=== PATIENT | male | born 1975 | race Caucasian/White ===

== ENCOUNTER 2016-07-04 19:31 | Emergency (ER) | payer OTHER ==
[2016-07-04] MEDS ORDERED: CLEOCIN 150 MG CAPSULE PO ONE ×2 (21:01)
[2016-07-04] MEDS ORDERED: CLEOCIN 150 MG CAPSULE ONE (21:05)
--- NOTE | 2016-07-04 21:07 | ERPHSYRPT ---
- History of Present Illness Time Seen by Provider: 07/04/16 20:55 Source: patient Exam Limitations: no limitations Patient Subjective Stated Complaint: pt states he thinks he might have been bit by a spider Triage Nursing Assessment: pt alert and oriented, answers questions approp. pt ambulatory with steady gait noted. respirations nonlabored with lungs cta. scab and redness to upper rt abd, no drainage noted. Physician History: FOR THE PAST 3 DAYS PT HAS HAD AN ERYTHEMATOUS TENDER AREA ON HIS RIGHT UPPER ABDOMEN PRESUMABLY FROM A SPIDER BITE. PT STATES HE SQUEEZED PUS OUT OF IT ABOUT1 HOUR AGO. PT DENIES FEVER, CHEST PAIN, NAUSEA, VOMITING; ADMITS TO RASH ON FEET. Allergies/Adverse Reactions: fluoxetine [From Prozac] Adverse Reaction (Verified 07/04/16 20:42) Home Medications: No Home Meds 1 ea MC UD 07/04/16 [History] Hx Tetanus, Diphtheria Vaccination/Date Given: Yes Hx Influenza Vaccination/Date Given: No Hx Pneumococcal Vaccination/Date Given: No Immunizations Up to Date: Yes - Review of Systems Skin: Rash (FEET), Other (SKIN LESION ON ABDOMEN.) All Other Systems: Reviewed and Negative - Past Surgical History Past Surgical History: Yes Gastrointestinal: Appendectomy Musculoskeletal: Orthopedic Surgery - Social History Smoking Status: Current every day smoker How long have you smoked: 26 yrs Exposure to second hand smoke: No Drug Use: none Patient Lives Alone: No - Nursing Vital Signs Nursing Vital Signs: Initial Vital Signs Temperature 97.8 F Temperature Source Oral Pulse Rate 81 Respiratory Rate 18 Blood Pressure [Right Arm] 125/66 Pain Intensity 6 - Physical Exam General Appearance: alert Eye Exam: PERRL/EOMI Ears, Nose, Throat Exam: pharynx normal, moist mucous membranes Neck Exam: normal inspection Respiratory Exam: lungs clear Cardiovascular Exam: normal heart sounds Gastrointestinal/Abdomen Exam: soft, normal bowel sounds, tenderness (MILD TENDERNESS OVER A ~ 2 CM X 1 CM ERYTHEMATOUS NODULE NON-FLUCTUANT WITHOUT DRAINAGE.) Back Exam: normal range of motion Extremity Exam: other (FLESHY COLORED FLAKY RASH ON PLANTAR ASPECT OF BOTH FEET. ) Neurologic Exam: alert, cooperative SpO2 Interpretation: normal SpO2: 96 Oxygen Delivery: Room Air - Course Nursing assessment & vital signs reviewed: Yes Ordered Tests: Medication Summary Discontinued Medications Generic Name Dose Route Start Last Admin Trade Name Freq PRN Reason Stop Dose Admin Clindamycin HCl 300 mg 07/04/16 21:01 Cleocin 150 Mg Capsule PO 07/04/16 21:02 STAT ONE - Departure Time of Disposition: 21:10 Departure Disposition: Home Clinical Impression: CELLULITIS OF ABDOMEN, BILATERAL TINEA PEDIS Condition: Fair Critical Care Time: No Instructions: Cellulitis -- Adult Additional Instructions: FOLLOW UP WITH PRIVATE DOCTOR TOMORROW. Prescriptions: Clindamycin HCl 300 mg PO Q6H #40 capsule Clotrimazole/Betamet Diprop [Lotrisone Cream] 45 gm TP BID #1 tube
[2016-07-04 21:16] VITALS: BP 131/72; PULSE 70; O2SAT 100
== END 2016-07-04 21:16 | disposition home or self-care (01) ==
LOC: ED 19:31
DX: L03.311 Cellulitis of abdominal wall (principal); B35.3 Tinea pedis
CPT/HCPCS: 99283; 99284; A9270-GY

== ENCOUNTER 2019-07-24 11:55 | Inpatient (IN) | payer OTHER, SELFPAY ==
[2019-07-24] MEDS ORDERED: Sodium Chloride 0.9% 1000 ML 1,000 ML IV STA ×2 (11:58→13:55)
--- NOTE | 2019-07-24 12:33 | XRAY ---
Indication: Altered mental status. Shallow breathing. Unresponsive. Comparison: None Portable chest underinflated accentuating cardiopulmonary structures. Right base subsegmental atelectasis/scarring and small left base calcified granuloma. Heart is borderline enlarged. Bony thorax intact. Impression: Nonacute underinflated chest.
--- NOTE | 2019-07-24 12:37 | XRAY ---
Indication: Altered mental status. Unresponsive. Multiple contiguous axial images obtained through the head without contrast. Comparison: None Normal appearing brain parenchyma, ventricles, and bony calvarium. Visualized paranasal sinuses and mastoid air cells are clear. Impression: Normal CT head without contrast exam.
[2019-07-24 12:48] LABS: Absolute Neutrophil Ct (ANC) 13.28 (1.4-6.9); BASOPHIL % 0.1 % (0.0-0.4); Basophil (Absolute #) 0.02 (0-0.4); Eosinophil (Absolute #) 0 (0-0.5); Hematocrit 51.4 % (42-50); Hemoglobin 17.5 gm/dl (12.5-18.0); Lymphocyte (Absolute #) 0.89 (1.0-4.6); Lymphocytes % 5.8 % (24.0-44.0); Mean Cell Volume 88.9 fl (78-100); Mean Corpuscular Hemoglobin 30.3 pg (26-32); Mean Platelet Volume 9.5 fl (7.5-11.0); Monocyte (Absolute #) 1.06 (0.0-1.3); Neutrophil % 87.1 % (36.0-66.0); Platelet Count 203 K/mm3 (150-450); Red Blood Count 5.78 M/mm3 (4.1-5.6); Red Cell Distribution Width 13.7 % (11.5-14.0); White Blood Count 15.3 K/mm3 (4.0-10.5)
[2019-07-24 12:53] LABS: INR 1.1 (0.8-3.0); PROTIME 12.5 SECONDS (8.83-12.87)
[2019-07-24 13:03] LABS: ALBUMIN 4.2 g/dL (3.5-5.0); ALKALINE PHOSPHATASE 88 U/L (38-126); ANION GAP 18.5 MEQ/L (5-15); BLOOD UREA NITROGEN 17 mg/dL (9-20); CHLORIDE 104 mmol/L (98-107); Calcium 9.2 mg/dL (8.4-10.2); Carbon Dioxide 21 mmol/L (22-30); Creatinine 1 1.01 mg/dL (0.66-1.25); Glucose 144 mg/dL (74-106); Potassium 3.9 mmol/L (3.5-5.1); SGOT/AST 330 U/L (17-59); SGPT/ALT 71 U/L (0-50); SODIUM 140 mmol/L (137-145); Total Protein 7.6 g/dL (6.3-8.2)
[2019-07-24 13:05] LABS: ACETAMINOPHEN < 10 ug/ml (10-30); ETHYL ALCOHOL < 10 mg/dL (0-10); SALICYLATE < 1.0 mg/dL (2-20)
[2019-07-24 13:15] LABS: TROPONIN < 0.012 ng/mL (0.000-0.034)
[2019-07-24] MEDS ORDERED: Ativan 2 MG/1 ML VIAL IV ONE (13:17)
[2019-07-24] MEDS ORDERED: Ativan 2 MG/1 ML VIAL ONE (13:18)
[2019-07-24] MEDS ORDERED: Sodium Chloride 0.9% 1000 ML 1,000 ML ONE ×3 (13:23→14:21)
[2019-07-24 13:30] LABS: Amphetamine,Urine POSITIVE (NEGATIVE); Barbiturate,Urine NEGATIVE (NEGATIVE); Benzodiazepine,Urine NEGATIVE (NEGATIVE); Cocaine,Urine NEGATIVE (NEGATIVE); Methadone,Urine NEGATIVE (NEGATIVE); Opiate,Urine NEGATIVE (NEGATIVE); PCP,Urine NEGATIVE (NEGATIVE); THC,Urine NEGATIVE (NEGATIVE)
[2019-07-24 13:34] LABS: Appearance CLOUDY (CLEAR); Bilirubin NEGATIVE (NEGATIVE); Blood LARGE Ery/ul (0-5); Epithelial Cells RARE /HPF (FEW); Glucose 50 mg/dL (NEGATIVE); Ketones NEGATIVE (NEGATIVE); Leukocyte Esterase NEGATIVE (NEGATIVE); Mucus MANY /HPF (NEGATIVE); Nitrite NEGATIVE (NEGATIVE); Non-Squamous Epithelial Cells RARE /HPF (FEW); Protein,Urine Dip 100 (Negative); Specific Gravity 1.025 (1.005-1.025); Urobilinogen NEGATIVE mg/dL (0-1)
[2019-07-24 13:38] LABS: CK-Creatinine Phosphokinase 25472 U/L (55-170)
[2019-07-24] MEDS ORDERED: ROCEPHIN 1 Gm-D5w 50 ml Bag** 1 G/50 ML IVPB IV STA (13:39)
--- NOTE | 2019-07-24 14:06 | ERPHSYRPT ---
- History of Present Illness Time Seen by Provider: 07/24/19 12:00 Source: EMS Exam Limitations: clinical condition Patient Subjective Stated Complaint: EMS states "We were called to not acting right, upon arrival, he was combative, we gave him 1 mg narcan and 5 mg versed due to being combative." Triage Nursing Assessment: Pt presented laying supine, painfully responsive. Pt sedated, respiration deep, irregulaar. Pt skin pwd. Physician History: [id number] white male male assessed today because he was not acting right. He was quite combative with an estimated give him 1 mg Versed arrival in the ER he is unable to give a history because of the Versed. Timing/Duration: today Severity: severe Allergies/Adverse Reactions: fluoxetine [From Prozac] Adverse Reaction (Verified 07/04/16 20:42) Home Medications: No Home Meds [No Home Meds] 1 ea MC UD 07/04/16 [History] Hx Tetanus, Diphtheria Vaccination/Date Given: (unknown) Hx Influenza Vaccination/Date Given: (unknown) Hx Pneumococcal Vaccination/Date Given: (unknown) Immunizations Up to Date: (unknown) Travel Risk - International Travel If Yes where:: [place] - Coronavirus Screening Has patient experienced Coronavirus symptoms: No - Review of Systems Constitutional: Fever, Chills All Other Systems: Reviewed and Negative, Unable due to condition - Past Medical History Pertinent Past Medical History: Yes GI Medical History: GERD Other Medical History: bipolar. skin infection - Past Surgical History Past Surgical History: Yes Gastrointestinal: Appendectomy Musculoskeletal: Orthopedic Surgery - Social History Smoking Status: Unknown if ever smoked How long have you smoked: 26 yrs Exposure to second hand smoke: (unknown) Drug Use: none Patient Lives Alone: (unknown) - Nursing Vital Signs Nursing Vital Signs: Initial Vital Signs Pulse Rate 108 H 07/24/19 11:56 Respiratory Rate 14 07/24/19 11:56 Blood Pressure 136/94 07/24/19 11:56 O2 Sat by Pulse Oximetry 94 L 07/24/19 11:56 Pain Scale Pain Intensity 0 - Physical Exam General Appearance: severe distress Eye Exam: PERRL/EOMI Ears, Nose, Throat Exam: normal ENT inspection Neck Exam: normal inspection, full range of motion Respiratory Exam: normal breath sounds, lungs clear Cardiovascular Exam: normal heart sounds, tachycardia Gastrointestinal/Abdomen Exam: soft, normal bowel sounds Male Genitalia Exam: normal genitalia Rectal Exam: deferred Back Exam: normal inspection Extremity Exam: normal inspection Neurologic Exam: agitation, uncooperative, intoxicated appearance Skin Exam: normal color, diaphoresis Lymphatic Exam: No adenopathy SpO2 Interpretation: normal SpO2: 97 O2 Delivery: Room Air Ordered Tests: Active Orders 24 hr Category Date Time Status Content Coordinator STAT Care 07/24/19 11:59 Active Cath for Specimen-Straight STAT Care 07/24/19 11:59 Active EKG-ER Only STAT Care 07/24/19 11:58 Active IV Insertion STAT Care 07/24/19 11:58 Active Oxygen-ED Only Nasal Cannula 2 lpm Care 07/24/19 11:58 Active CHEST 1 VIEW (PORTABLE) Stat Exams 07/24/19 11:59 Completed HEAD WITHOUT CONTRAST [CT] Stat Exams 07/24/19 11:59 Completed ACETAMINOPHEN Stat Lab 07/24/19 12:20 Completed CBC W DIFF Stat Lab 07/24/19 12:20 Completed CK-Creatinine Phosphokinase Routine Lab 07/24/19 12:20 Completed CMP Stat Lab 07/24/19 12:20 Completed CULTURE,URINE Stat Lab 07/24/19 12:43 Received ETHYL ALCOHOL Stat Lab 07/24/19 12:20 Completed Lactic Acid Stat Lab 07/24/19 11:58 Completed PROTIME WITH INR Stat Lab 07/24/19 12:20 Completed SALICYLATE Stat Lab 07/24/19 12:20 Completed TROPONIN Q3H Lab 07/24/19 12:20 Completed TROPONIN Q3H Lab 07/24/19 15:15 Ordered TROPONIN Q3H Lab 07/24/19 18:15 Ordered TROPONIN Q3H Lab 07/24/19 21:15 Ordered UA W/RFX UR CULTURE Stat Lab 07/24/19 12:43 Completed Urine Triage Profile Stat Lab 07/24/19 12:43 Completed Medication Summary Generic Name Dose Route Start Last Admin Trade Name Freq PRN Reason Stop Dose Admin Sodium Chloride 1,000 mls @ 999 mls/hr 07/24/19 13:55 Sodium Chloride 0.9% 1000 Ml IV 07/24/19 14:55 .Q1H1M STA Discontinued Medications Generic Name Dose Route Start Last Admin Trade Name Freq PRN Reason Stop Dose Admin Sodium Chloride 1,000 mls @ 999 mls/hr 07/24/19 11:58 07/24/19 13:25 Sodium Chloride 0.9% 1000 Ml IV 07/24/19 12:58 999 mls/hr .Q1H1M STA Administration Sodium Chloride Confirm 07/24/19 13:23 Sodium Chloride 0.9% 1000 Ml Administered 07/24/19 13:24 Dose 1,000 mls @ ud .ROUTE .STK-MED ONE Ceftriaxone Sodium/Dextrose 1 g in 50 mls @ 100 mls/hr 07/24/19 13:39 Rocephin 1 Gm-D5w 50 Ml Bag IV 07/24/19 14:08 STAT STA Sodium Chloride Confirm 07/24/19 13:47 Sodium Chloride 0.9% 1000 Ml Administered 07/24/19 13:48 Dose 1,000 mls @ ud .ROUTE .STK-MED ONE Lorazepam 2 mg 07/24/19 13:17 07/24/19 13:22 Ativan 2 Mg/1 Ml Vial IV 07/24/19 13:18 2 mg STAT ONE Administration Lorazepam Confirm 07/24/19 13:18 Ativan 2 Mg/1 Ml Vial Administered 07/24/19 13:19 Dose 2 mg .ROUTE .STK-MED ONE Lab/Rad Data: Laboratory Result Diagrams 07/24/19 12:20 07/24/19 12:20 Laboratory Results 07/24/19 07/24/19 07/24/19 Range/Units 12:43 12:43 12:20 WBC (4.0-10.5) K/mm3 RBC (4.1-5.6) M/mm3 Hgb (12.5-18.0) gm/dl Hct (42-50) % MCV (78-100) fl MCH (26-32) pg MCHC (32-36) g/dl RDW (11.5-14.0) % Plt Count (150-450) K/mm3 MPV (7.5-11.0) fl Gran % (36.0-66.0) % Eos # (Auto) (0-0.5) Absolute Lymphs (auto) (1.0-4.6) Absolute Monos (auto) (0.0-1.3) Lymphocytes % (24.0-44.0) % Monocytes % (0.0-12.0) % Eosinophils % (0.00-5.0) % Basophils % (0.0-0.4) % Absolute Granulocytes (1.4-6.9) Basophils # (0-0.4) PT (8.83-12.87) SECONDS INR (0.8-3.0) Sodium (137-145) mmol/L Potassium (3.5-5.1) mmol/L Chloride (98-107) mmol/L Carbon Dioxide (22-30) mmol/L Anion Gap (5-15) MEQ/L BUN (9-20) mg/dL Creatinine (0.66-1.25) mg/dL Estimated GFR ML/MIN Glucose (74-106) mg/dL Lactic Acid (0.4-2.0) Calcium (8.4-10.2) mg/dL Total Bilirubin (0.2-1.3) mg/dL AST (17-59) U/L ALT (0-50) U/L Alkaline Phosphatase (38-126) U/L Creatine Kinase 85608 H (55-170) U/L Troponin I < 0.012 (0.000-0.034) ng/mL Serum Total Protein (6.3-8.2) g/dL Albumin (3.5-5.0) g/dL Urine Color JANIE (YELLOW) Urine Appearance CLOUDY (CLEAR) Urine pH 5.0 (5-6) Ur Specific [place] 1.025 (1.005-1.025) Urine Protein 100 (Negative) Urine Ketones NEGATIVE (NEGATIVE) Urine Blood LARGE (0-5) Maxime/ul Urine Nitrite NEGATIVE (NEGATIVE) Urine Bilirubin NEGATIVE (NEGATIVE) Urine Urobilinogen NEGATIVE (0-1) mg/dL Ur Leukocyte Esterase NEGATIVE (NEGATIVE) Urine WBC (Auto) 16-25 (0-5) /HPF Urine RBC (Auto) NONE (0-2) /HPF U Hyaline Cast (Auto) 11-25 (0-2) /LPF U Epithel Cells (Auto) RARE (FEW) /HPF Urine Bacteria (Auto) NONE (NEGATIVE) /HPF U Non-Squamous Epi Cells RARE (FEW) /HPF Urine Mucus (Auto) MANY (NEGATIVE) /HPF Urine Culture Reflexed ORDERED SEPARATELY (NO) Urine Glucose 50 (NEGATIVE) mg/dL Salicylates (2-20) mg/dL Urine Opiates Level NEGATIVE (NEGATIVE) Ur Methadone NEGATIVE (NEGATIVE) Acetaminophen (10-30) ug/ml Urine Barbiturates NEGATIVE (NEGATIVE) Ur Phencyclidine (PCP) NEGATIVE (NEGATIVE) Urine Amphetamine POSITIVE (NEGATIVE) U Benzodiazepine Level NEGATIVE (NEGATIVE) Urine Cocaine NEGATIVE (NEGATIVE) Urine Marijuana (THC) NEGATIVE (NEGATIVE) Ethyl Alcohol (0-10) mg/dL 07/24/19 07/24/19 07/24/19 Range/Units 12:20 12:20 12:20 WBC 15.3 H (4.0-10.5) K/mm3 RBC 5.78 H (4.1-5.6) M/mm3 Hgb 17.5 (12.5-18.0) gm/dl Hct 51.4 H (42-50) % MCV 88.9 (78-100) fl MCH 30.3 (26-32) pg MCHC 34.0 (32-36) g/dl RDW 13.7 (11.5-14.0) % Plt Count 203 (150-450) K/mm3 MPV 9.5 (7.5-11.0) fl Gran % 87.1 H (36.0-66.0) % Eos # (Auto) 0 (0-0.5) Absolute Lymphs (auto) 0.89 L (1.0-4.6) Absolute Monos (auto) 1.06 (0.0-1.3) Lymphocytes % 5.8 L (24.0-44.0) % Monocytes % 7.0 (0.0-12.0) % Eosinophils % 0.0 (0.00-5.0) % Basophils % 0.1 (0.0-0.4) % Absolute Granulocytes 13.28 H (1.4-6.9) Basophils # 0.02 (0-0.4) PT 12.5 (8.83-12.87) SECONDS INR 1.10 (0.8-3.0) Sodium 140 (137-145) mmol/L Potassium 3.9 (3.5-5.1) mmol/L Chloride 104 (98-107) mmol/L Carbon Dioxide 21 L (22-30) mmol/L Anion Gap 18.5 H (5-15) MEQ/L BUN 17 (9-20) mg/dL Creatinine 1.01 (0.66-1.25) mg/dL Estimated GFR > 60.0 ML/MIN Glucose 144 H (74-106) mg/dL Lactic Acid (0.4-2.0) Calcium 9.2 (8.4-10.2) mg/dL Total Bilirubin 0.90 (0.2-1.3) mg/dL AST 330 H (17-59) U/L ALT 71 H (0-50) U/L Alkaline Phosphatase 88 (38-126) U/L Creatine Kinase (55-170) U/L Troponin I (0.000-0.034) ng/mL Serum Total Protein 7.6 (6.3-8.2) g/dL Albumin 4.2 (3.5-5.0) g/dL Urine Color (YELLOW) Urine Appearance (CLEAR) Urine pH (5-6) Ur Specific [place] (1.005-1.025) Urine Protein (Negative) Urine Ketones (NEGATIVE) Urine Blood (0-5) Maxime/ul Urine Nitrite (NEGATIVE) Urine Bilirubin (NEGATIVE) Urine Urobilinogen (0-1) mg/dL Ur Leukocyte Esterase (NEGATIVE) Urine WBC (Auto) (0-5) /HPF Urine RBC (Auto) (0-2) /HPF U Hyaline Cast (Auto) (0-2) /LPF U Epithel Cells (Auto) (FEW) /HPF Urine Bacteria (Auto) (NEGATIVE) /HPF U Non-Squamous Epi Cells (FEW) /HPF Urine Mucus (Auto) (NEGATIVE) /HPF Urine Culture Reflexed (NO) Urine Glucose (NEGATIVE) mg/dL Salicylates < 1.0 L (2-20) mg/dL Urine Opiates Level (NEGATIVE) Ur Methadone (NEGATIVE) Acetaminophen < 10 L (10-30) ug/ml Urine Barbiturates (NEGATIVE) Ur Phencyclidine (PCP) (NEGATIVE) Urine Amphetamine (NEGATIVE) U Benzodiazepine Level (NEGATIVE) Urine Cocaine (NEGATIVE) Urine Marijuana (THC) (NEGATIVE) Ethyl Alcohol < 10 (0-10) mg/dL 07/24/19 Range/Units 11:58 WBC (4.0-10.5) K/mm3 RBC (4.1-5.6) M/mm3 Hgb (12.5-18.0) gm/dl Hct (42-50) % MCV (78-100) fl MCH (26-32) pg MCHC (32-36) g/dl RDW (11.5-14.0) % Plt Count (150-450) K/mm3 MPV (7.5-11.0) fl Gran % (36.0-66.0) % Eos # (Auto) (0-0.5) Absolute Lymphs (auto) (1.0-4.6) Absolute Monos (auto) (0.0-1.3) Lymphocytes % (24.0-44.0) % Monocytes % (0.0-12.0) % Eosinophils % (0.00-5.0) % Basophils % (0.0-0.4) % Absolute Granulocytes (1.4-6.9) Basophils # (0-0.4) PT (8.83-12.87) SECONDS INR (0.8-3.0) Sodium (137-145) mmol/L Potassium (3.5-5.1) mmol/L Chloride (98-107) mmol/L Carbon Dioxide (22-30) mmol/L Anion Gap (5-15) MEQ/L BUN (9-20) mg/dL Creatinine (0.66-1.25) mg/dL Estimated GFR ML/MIN Glucose (74-106) mg/dL Lactic Acid 3.7 H (0.4-2.0) Calcium (8.4-10.2) mg/dL Total Bilirubin (0.2-1.3) mg/dL AST (17-59) U/L ALT (0-50) U/L Alkaline Phosphatase (38-126) U/L Creatine Kinase (55-170) U/L Troponin I (0.000-0.034) ng/mL Serum Total Protein (6.3-8.2) g/dL Albumin (3.5-5.0) g/dL Urine Color (YELLOW) Urine Appearance (CLEAR) Urine pH (5-6) Ur Specific [place] (1.005-1.025) Urine Protein (Negative) Urine Ketones (NEGATIVE) Urine Blood (0-5) Maxime/ul Urine Nitrite (NEGATIVE) Urine Bilirubin (NEGATIVE) Urine Urobilinogen (0-1) mg/dL Ur Leukocyte Esterase (NEGATIVE) Urine WBC (Auto) (0-5) /HPF Urine RBC (Auto) (0-2) /HPF U Hyaline Cast (Auto) (0-2) /LPF U Epithel Cells (Auto) (FEW) /HPF Urine Bacteria (Auto) (NEGATIVE) /HPF U Non-Squamous Epi Cells (FEW) /HPF Urine Mucus (Auto) (NEGATIVE) /HPF Urine Culture Reflexed (NO) Urine Glucose (NEGATIVE) mg/dL Salicylates (2-20) mg/dL Urine Opiates Level (NEGATIVE) Ur Methadone (NEGATIVE) Acetaminophen (10-30) ug/ml Urine Barbiturates (NEGATIVE) Ur Phencyclidine (PCP) (NEGATIVE) Urine Amphetamine (NEGATIVE) U Benzodiazepine Level (NEGATIVE) Urine Cocaine (NEGATIVE) Urine Marijuana (THC) (NEGATIVE) Ethyl Alcohol (0-10) mg/dL - Progress Progress: unchanged Discussed with : Kelly Will see patient in: hospital (full admit) - Departure Departure Disposition: In-patient Admission Clinical Impression: Rhabdomyolysis Condition: Stable Critical Care Time: Yes Critical Care Time(excluding separately billable procedures): Critical 75-104 mins Referrals: JULIANNA HICKS [Primary Care Provider] -
[2019-07-24] MEDS ORDERED: Sodium Chloride 0.9% 1000 ML 1,000 ML IV SCH (14:15)
[2019-07-24] MEDS ORDERED: Haldol 5 MG IV ONE (14:28)
[2019-07-24] MEDS ORDERED: Haldol 5 MG ONE (14:30)
[2019-07-24] MEDS ORDERED: APRESOLINE 20 MG/ML INJ IV PRN (17:20)
[2019-07-24] MEDS: BENADRYL 50 MG/ML IV PRN ×2 (17:43→21:42)
[2019-07-24] MEDS: Ativan 2 MG/1 ML VIAL IVIM PRN (17:44)
[2019-07-24] MEDS: Haldol 5 MG IVIM PRN ×2 (17:45→21:42)
[2019-07-25] MEDS: Haldol 5 MG IVIM PRN ×4 (02:01→17:16)
[2019-07-25] MEDS: Ativan 2 MG/1 ML VIAL IVIM PRN ×4 (02:01→16:57)
[2019-07-25] MEDS: BENADRYL 50 MG/ML IV PRN ×4 (02:01→17:16)
[2019-07-25] MEDS: FEVERALL 650 MG PR PRN ×2 (04:41→08:10)
[2019-07-25 05:05] LABS: Hematocrit 47.4 % (42-50); Hemoglobin 16.3 gm/dl (12.5-18.0); Mean Cell Volume 89.9 fl (78-100); Mean Corpuscular Hemoglobin 30.9 pg (26-32); Mean Corpuscular Hgb Concent. 34.4 g/dl (32-36); Mean Platelet Volume 9.3 fl (7.5-11.0); Platelet Count 175 K/mm3 (150-450); Red Blood Count 5.27 M/mm3 (4.1-5.6); Red Cell Distribution Width 13.9 % (11.5-14.0); White Blood Count 12.8 K/mm3 (4.0-10.5)
[2019-07-25 05:34] LABS: ALBUMIN 3.7 g/dL (3.5-5.0); ALKALINE PHOSPHATASE 69 U/L (38-126); BLOOD UREA NITROGEN 14 mg/dL (9-20); CHLORIDE 109 mmol/L (98-107); Calcium 8.6 mg/dL (8.4-10.2); Carbon Dioxide 23 mmol/L (22-30); Creatinine 1 0.87 mg/dL (0.66-1.25); Glucose 113 mg/dL (74-106); Potassium 4.2 mmol/L (3.5-5.1); SGOT/AST 477 U/L (17-59); SGPT/ALT 81 U/L (0-50); SODIUM 142 mmol/L (137-145); Total Protein 6.8 g/dL (6.3-8.2)
[2019-07-25 08:36] LABS: A-aADO2 52; ABG HEMOGLOBIN 16.3; ABG POTASSIUM 4.3 (3.5-5.1); ABG SITE RIGHT BRACHIAL; ARTERIAL BLD GAS O2 SATURATION 93.5 % (95-100); ARTERIAL BLOOD GAS BASE EXCESS -1.5 (-2.0-2.0); ARTERIAL BLOOD GAS FIO2 21 %; ARTERIAL BLOOD GAS PCO2 30 mmHg (35-45); ARTERIAL BLOOD GAS PO2 60 mmHg (75-100); ARTERIAL BLOOD GAS pH 7.46 (7.35-7.45); CARBOXYHEMOGLOBIN 2.5 % THgb (0.0-6.9); HCO3- 21.3 (22-28); HGB O2 SAT 90.2 g/dF (94-100); paO2 pAO1 0.54
[2019-07-25] MEDS ORDERED: Protonix 40MG Tablet PO SCH (10:00)
[2019-07-25] MEDS ORDERED: PATIENT OWN MEDICATION PO SCH (10:00)
[2019-07-25] MEDS ORDERED: ROCEPHIN 1 Gm-D5w 50 ml Bag** 1 G/50 ML IVPB IV SCH (10:00)
[2019-07-25] MEDS ORDERED: Pepcid 20 MG PO SCH (10:00)
[2019-07-25] MEDS ORDERED: Sodium Chloride 0.9% 1000 ML 1,000 ML IV STA (10:19)
[2019-07-25] MEDS ORDERED: Lactated Ringers 1,000 ML IV SCH (10:30)
[2019-07-25] MEDS ORDERED: PROTONIX 40 MG IV IV SCH (11:30)
[2019-07-25] MEDS ORDERED: Pepcid 20 MG VIAL IV SCH (12:00)
[2019-07-25] MEDS ORDERED: Geodon 20 MG INJ IM ONE ×2 (12:25→13:47)
[2019-07-25] MEDS ORDERED: Sodium Chloride 0.9% 1000 ML 1,000 ML IV SCH ×2 (13:15→19:50)
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
[2019-07-25 16:01] LABS: Hematocrit 44.7 % (42-50); Mean Corpuscular Hemoglobin 30.9 pg (26-32); Mean Corpuscular Hgb Concent. 33.6 g/dl (32-36); Mean Platelet Volume 9.5 fl (7.5-11.0); Platelet Count 149 K/mm3 (150-450); Red Blood Count 4.86 M/mm3 (4.1-5.6)
[2019-07-25 16:07] LABS: ALBUMIN 3.4 g/dL (3.5-5.0); ALKALINE PHOSPHATASE 62 U/L (38-126); ANION GAP 12.2 MEQ/L (5-15); BLOOD UREA NITROGEN 15 mg/dL (9-20); CHLORIDE 110 mmol/L (98-107); Calcium 8.4 mg/dL (8.4-10.2); Carbon Dioxide 24 mmol/L (22-30); Creatinine 1 0.77 mg/dL (0.66-1.25); Glucose 102 mg/dL (74-106); Potassium 4.3 mmol/L (3.5-5.1); SGOT/AST 312 U/L (17-59); SGPT/ALT 72 U/L (0-50); SODIUM 142 mmol/L (137-145); Total Protein 6.4 g/dL (6.3-8.2)
[2019-07-25 16:52] LABS: ATYPICAL LYMPHS 1 %; BAND 20 % (0.0-2.0); Dohle Bodies 2+; Lymphocytes 23 % (24-44); Monocyte 8 % (0.0-12.0); Neutrophils 48 % (36.-66.); Platelet Estimate NORMAL (NORMAL); Total Cells Counted 100
[2019-07-25] MEDS ORDERED: Ativan 2 MG/1 ML VIAL IV ONE (19:56)
--- NOTE | 2019-07-25 19:59 | XRAY ---
Indication: Cough and fever. Suspect COVID 19. Comparison: One day earlier. Portable chest unchanged again underinflated with right base subsegmental atelectasis/scarring and left base calcified granuloma. Heart remains borderline enlarged. No new cardiopulmonary abnormalities. Comment: Preliminary interpretation was made by [facility]. No critical discrepancy.
[2019-07-25] MEDS ORDERED: CLINDAMYCIN-D5W 600 MG/50 ML*** 600 MG/50 ML BAG IV SCH (20:00)
[2019-07-25] MEDS ORDERED: FEVERALL 120 MG RC ONE (20:03)
[2019-07-25] MEDS ORDERED: FEVERALL 650 MG PR ONE (20:03)
--- NOTE | 2019-07-25 20:46 | PCM.DS ---
Discharge Summary Date of Admission: 07/24/19 15:51 Date of Discharge: 07/25/19 Admitting Physician: NEEL DEL RIO Primary Care Provider: JULIANNA HICKS Allergies Allergies fluoxetine [From Prozac] Adverse Reaction (Verified 07/04/16 20:42) Hospital Summary - Hospital Course Hospital Course: Pt. was admitted to hospital for unrespsonsiveness, found to be in Rhabdomyolysis. Pt then spiked a temp of 102 in the am, transferred to covid unit, pt. became agitated given geodon and settled down, then later had a seizure, at that time it was felt the patient would benefit from a higher level of care. Pt. started on cleocin and transfer arrangements were made to [facility]. - Vitals & Intake/Output Vital Signs: Vital Signs Temperature 99.1 F 07/25/19 15:00 Pulse Rate 113 H 07/25/19 18:00 Respiratory Rate 17 07/25/19 19:00 Blood Pressure 123/58 07/25/19 15:00 O2 Sat by Pulse Oximetry 92 L 07/25/19 18:00 Intake & Output: Intake & Output 07/23/19 07/24/19 07/25/19 07/26/19 11:59 11:59 11:59 11:59 Intake Total 567 2700 Output Total 2450 900 Balance -1883 1800 Weight 104 kg 102.4 kg - Lab Result Diagrams: 07/25/19 15:05 07/25/19 15:05 Lab Results-Last 24 Hrs: Lab Results-Last 24 Hours 07/24/19 07/25/19 07/25/19 Range/Units 21:10 05:01 05:01 WBC 12.8 H (4.0-10.5) K/mm3 RBC 5.27 (4.1-5.6) M/mm3 Hgb 16.3 (12.5-18.0) gm/dl Hct 47.4 (42-50) % MCV 89.9 (78-100) fl MCH 30.9 (26-32) pg MCHC 34.4 (32-36) g/dl RDW 13.9 (11.5-14.0) % Plt Count 175 (150-450) K/mm3 MPV 9.3 (7.5-11.0) fl Segmented Neutrophils (36.-66.) % Band Neutrophils (0.0-2.0) % Lymphocytes (Manual) (24-44) % Monocytes (Manual) (0.0-12.0) % Atypical Lymphocytes % Dohle Bodies Platelet Estimate (NORMAL) RBC Morphology Puncture Site pCO2 (35-45) mmHg pO2 (75-100) mmHg Base Excess (-2.0-2.0) O2 Saturation (94-100) g/dF ABG pH (7.35-7.45) ABG HCO3 (22-28) ABG O2 Sat (Measured) (95-100) % Justin Test A-a Gradient a/A Ratio Hemoglobin Carboxyhemoglobin (0.0-6.9) % THgb Methemoglobin (1.4-1.5) % Temperature C POC O2 Flow Rate % Sodium (137-145) mmol/L Potassium (3.5-5.1) mmol/L Chloride (98-107) mmol/L Carbon Dioxide (22-30) mmol/L Anion Gap (5-15) MEQ/L BUN (9-20) mg/dL Creatinine (0.66-1.25) mg/dL Estimated GFR ML/MIN Glucose (74-106) mg/dL Calcium (8.4-10.2) mg/dL Total Bilirubin (0.2-1.3) mg/dL AST (17-59) U/L ALT (0-50) U/L Alkaline Phosphatase (38-126) U/L Creatine Kinase (55-170) U/L Troponin I < 0.012 (0.000-0.034) ng/mL Serum Total Protein (6.3-8.2) g/dL Albumin (3.5-5.0) g/dL Prealbumin 21.73 (17.6-36.0) mg/dL 07/25/19 07/25/19 07/25/19 Range/Units 05:01 08:25 11:05 WBC (4.0-10.5) K/mm3 RBC (4.1-5.6) M/mm3 Hgb (12.5-18.0) gm/dl Hct (42-50) % MCV (78-100) fl MCH (26-32) pg MCHC (32-36) g/dl RDW (11.5-14.0) % Plt Count (150-450) K/mm3 MPV (7.5-11.0) fl Segmented Neutrophils (36.-66.) % Band Neutrophils (0.0-2.0) % Lymphocytes (Manual) (24-44) % Monocytes (Manual) (0.0-12.0) % Atypical Lymphocytes % Dohle Bodies Platelet Estimate (NORMAL) RBC Morphology Puncture Site RIGHT BRACHIAL pCO2 30 L (35-45) mmHg pO2 60 L (75-100) mmHg Base Excess -1.5 (-2.0-2.0) O2 Saturation 90.2 L (94-100) g/dF ABG pH 7.46 H (7.35-7.45) ABG HCO3 21.3 L (22-28) ABG O2 Sat (Measured) 93.5 L (95-100) % Justin Test NOT APPLICABLE A-a Gradient 52 a/A Ratio 0.54 Hemoglobin 16.3 Carboxyhemoglobin 2.5 (0.0-6.9) % THgb Methemoglobin 1.0 L (1.4-1.5) % Temperature 37.0 C POC O2 Flow Rate 21 % Sodium 142 (137-145) mmol/L Potassium 4.2 4.3 (3.5-5.1) mmol/L Chloride 109 H (98-107) mmol/L Carbon Dioxide 23 (22-30) mmol/L Anion Gap 14.0 (5-15) MEQ/L BUN 14 (9-20) mg/dL Creatinine 0.87 (0.66-1.25) mg/dL Estimated GFR > 60.0 ML/MIN Glucose 113 H (74-106) mg/dL Calcium 8.6 (8.4-10.2) mg/dL Total Bilirubin 1.40 H (0.2-1.3) mg/dL AST 477 H (17-59) U/L ALT 81 H (0-50) U/L Alkaline Phosphatase 69 (38-126) U/L Creatine Kinase > 1600 H (55-170) U/L Troponin I (0.000-0.034) ng/mL Serum Total Protein 6.8 (6.3-8.2) g/dL Albumin 3.7 (3.5-5.0) g/dL Prealbumin (17.6-36.0) mg/dL 07/25/19 07/25/19 07/25/19 Range/Units 11:05 15:05 15:05 WBC 9.0 (4.0-10.5) K/mm3 RBC 4.86 (4.1-5.6) M/mm3 Hgb 15.0 (12.5-18.0) gm/dl Hct 44.7 (42-50) % MCV 92.0 (78-100) fl MCH 30.9 (26-32) pg MCHC 33.6 (32-36) g/dl RDW 14.0 (11.5-14.0) % Plt Count 149 L (150-450) K/mm3 MPV 9.5 (7.5-11.0) fl Segmented Neutrophils 48 (36.-66.) % Band Neutrophils 20 H (0.0-2.0) % Lymphocytes (Manual) 23 L (24-44) % Monocytes (Manual) 8 (0.0-12.0) % Atypical Lymphocytes 1 % Dohle Bodies 2+ Platelet Estimate NORMAL (NORMAL) RBC Morphology NORMAL Puncture Site pCO2 (35-45) mmHg pO2 (75-100) mmHg Base Excess (-2.0-2.0) O2 Saturation (94-100) g/dF ABG pH (7.35-7.45) ABG HCO3 (22-28) ABG O2 Sat (Measured) (95-100) % Justin Test A-a Gradient a/A Ratio Hemoglobin Carboxyhemoglobin (0.0-6.9) % THgb Methemoglobin (1.4-1.5) % Temperature C POC O2 Flow Rate % Sodium 142 (137-145) mmol/L Potassium 4.3 (3.5-5.1) mmol/L Chloride 110 H (98-107) mmol/L Carbon Dioxide 24 (22-30) mmol/L Anion Gap 12.2 (5-15) MEQ/L BUN 15 (9-20) mg/dL Creatinine 0.77 (0.66-1.25) mg/dL Estimated GFR > 60.0 ML/MIN Glucose 102 (74-106) mg/dL Calcium 8.4 (8.4-10.2) mg/dL Total Bilirubin 1.30 (0.2-1.3) mg/dL AST 312 H (17-59) U/L ALT 72 H (0-50) U/L Alkaline Phosphatase 62 (38-126) U/L Creatine Kinase (55-170) U/L Troponin I < 0.012 (0.000-0.034) ng/mL Serum Total Protein 6.4 (6.3-8.2) g/dL Albumin 3.4 L (3.5-5.0) g/dL Prealbumin (17.6-36.0) mg/dL Micro Results-Entire Visit: Microbiology 07/24/19 12:43 Urine Culture - Preliminary Catherized NO GROWTH TO DATE - Radiology Exams Ordered Rad Exams-Entire Visit: Radiology Procedures Category Date Time Status CHEST 1 VIEW (PORTABLE) Stat Exams 07/24/19 11:59 Completed CHEST 1 VIEW (PORTABLE) Stat Exams 07/25/19 10:03 Completed HEAD WITHOUT CONTRAST [CT] Stat Exams 07/24/19 11:59 Completed - Procedures and Test Procedures and Tests throughout Hospitalization: Therapy Orders & Screens 07/25/19 09:00 Oxygen Oxymask LPM 5 lpm Comment: Diagnosis: Rhabdomyolysis Respiratory Therapy Assessment DAILY Comment: Diagnosis: Rhabdomyolysis 07/25/19 10:08 EKG STAT Comment: Diagnosis: Rhabdomyolysis Discharge Exam General Appearance: no apparent distress, lethargy Neurologic Exam: confusion Eye Exam: PERRL Ears, Nose, Throat Exam: normal ENT inspection Neck Exam: normal inspection Respiratory Exam: diminished breath sounds Cardiovascular Exam: regular rate/rhythm Gastrointestinal/Abdomen Exam: soft, normal bowel sounds, No tenderness, No distention Final Diagnosis/Problem List - Final Discharge Diagnosis/Problem (1) Amphetamine abuse Current Visit: Yes Status: Acute Code(s): F15.10 - OTHER STIMULANT ABUSE, UNCOMPLICATED (2) Rhabdomyolysis Current Visit: Yes Status: Acute Code(s): M62.82 - RHABDOMYOLYSIS (3) Fever Current Visit: Yes Status: Acute Code(s): R50.9 - FEVER, UNSPECIFIED - Discharge Discharge Date: 07/25/19 Dis[facility]: [facility] Condition: Serious Prescriptions: No Action Famotidine 20 mg [Pepcid 20 MG] 40 mg PO DAILY Omeprazole 20 mg PO DAILY Cariprazine HCl [Vraylar] 1.5 mg PO DAILY Terbinafine HCl [Lamisil] 250 mg PO DAILY Follow up with: JULIANNA HICKS [Primary Care Provider] - 1 Week
[2019-07-25 21:25] VITALS: BP 134/64; PULSE 109
[2019-07-25 22:37] VITALS: O2SAT 91
== END 2019-07-25 22:05 | disposition short-term general hospital (02) | DRG 897 ==
LOC: ED 11:55 → MED SURG 15:51
PROVIDERS: ADMIT Family Medicine; ATTEND Family Medicine
DX: F15.10 Other stimulant abuse, uncomplicated (principal); M62.82 Rhabdomyolysis; R50.9 Fever, unspecified; R56.9 Unspecified convulsions; Z79.899 Other long term (current) drug therapy
CPT/HCPCS: 36000; 36415; 36600; 70450; 71045; 80053; 80307; 81001; 82375; 82550; 82803; 83605; 84134; 84484; 85025; 85027; 85610; 87040; 87086; 93005; 93041; 94760; 94762; 96360; 96361; 96374; 96375; 99285; 99291; 99292; G0481; J0696; J1200; J1630; J2060; J3486; P9612; U0002; A9270-GY; G0480